=== PATIENT | male | born 1990 ===

== ENCOUNTER 2020-11-20 17:54 | Inpatient (IN) | payer OTHER ==
[2020-11-25 12:41] VITALS: BP 102/57
== END 2020-11-25 16:15 | disposition home or self-care (01) | DRG 101 ==
LOC: EEVIPCON 17:54 → ED 17:54 → 4A 11-21 00:04 → OBSVTOIN 11-22 18:23
PROVIDERS: ADMIT Hospitalist; ATTEND Internal Medicine
DX: R56.9 Unspecified convulsions (principal); R45.851 Suicidal ideations; K52.9 Noninfective gastroenteritis and colitis, unspecified; I95.9 Hypotension, unspecified; F20.9 Schizophrenia, unspecified; F31.9 Bipolar disorder, unspecified; Z79.899 Other long term (current) drug therapy
CPT/HCPCS: 36415; 70450; 70551; 71045; 74177; 80048; 80053; 80076; 80307; 80320; 81001; 82140; 82550; 82962; 83735; 84100; 85025; 85027; 87040; 87641; 94640; 95819; 99406; G0378; G0480; J1170; J1644; J1956; J2405; J7030; J7042; Q9967; U0003